=== PATIENT | female | born 1975 | race Caucasian/White ===

== ENCOUNTER 2020-11-02 16:36 | Emergency (ER) | payer MEDICARE, MEDICAID, SELFPAY ==
[2020-11-02 16:50] VITALS: BP 125/73; PULSE 70; RESP 20; TEMP 37; O2SAT 99
--- NOTE | 2020-11-02 17:08 | ED.FEMALEGU ---
HPI - Female Genitourinary General Chief complaint: Urogenital-Female Stated complaint: blood in urine w/back pain Time Seen by Provider: 11/02/20 16:38 Source: patient Mode of arrival: ambulatory Limitations: no limitations History of Present Illness HPI Narrative: 45-year-old female presents to urgent care with complaints of urinary urgency, frequency, hematuria and flank pains for the past 3 days. Patient denies fever, body aches, chills, vaginal discharge or concern for STDs. MD elicited complaint: dysuria, UTI and flank pain Pertinent past history: recurrent UTIs Onset (ago): day(s) (3) Vaginal bleeding: none Urinary symptoms: Frequency and Hematuria Relieving factors: none Patient : No Related Data Allergies Allergy/AdvReac Type Severity Reaction Status Date / Time Penicillins Allergy Dyspnea / Verified 11/02/20 17:18 SOB Review of Systems Constitutional: Constitutional: Denies chills and Denies fatigue Cardiovascular: Cardiovascular: Denies chest pain, Denies rapid heart rate and Denies radiating jaw, neck or arm pain Gastrointestinal: Gastrointestinal: Denies abdominal pain, Denies diarrhea, Denies nausea and Denies vomiting Genitourinary: Genitourinary: Reports hematuria, Reports nocturia, Reports dysuria, Reports flank pain and Denies urinary incontinence Integumentary/Breasts: Skin/Breast: Denies rash Neurologic: Denies vertigo, Denies dizziness and Denies syncope [facility] Social History Social History (Updated 11/02/20 @ 17:12 by Janel Rosales APRN) Smoking status: Current every day smoker Comments At time of signature, I agree with nursing past medical, surgical, social and family history. There is no relevant family history pertinent to the presenting complaint. Exam Const: General: healthy appearing and no acute distress Orientation/consciousness: patient oriented x3 Neck: Neck: normal visual inspection Resp: Effort & Inspection: normal respiratory effort and not tachypneic Auscultation: clear to auscultation bilaterally Cardio: Rate: regular rate, not bradycardic and not tachycardic Rhythm: regular rhythm GI: GI Palp: Yes Soft to palpation, No Tenderness to palpation present (GI) and No Rebound tenderness present Auscultation: normal bowel sounds : General: Yes bladder normal to palpation and Yes CVA tenderness bilateral Skin: General skin exam: normal color Rashes: no rashes Wounds: no wounds Neuro: General: patient oriented x3 and no meningeal signs Psych: Affect: normal affect Attitude: cooperative Thought content: Yes Normal thought content present Course Vital Signs Vital signs: Vital Signs Temperature 37.0 C 11/02/20 16:50 Pulse Rate 70 11/02/20 16:50 Respiratory Rate 20 11/02/20 16:50 Blood Pressure 125/73 11/02/20 16:50 Pulse Oximetry 99 11/02/20 16:50 Temperature 37.0 C 11/02/20 16:50 Pulse Rate 70 11/02/20 16:50 Respiratory Rate 20 11/02/20 16:50 Blood Pressure 125/73 11/02/20 16:50 Pulse Oximetry 99 11/02/20 16:50 MDM - Female Genitourinary MDM Narrative Medical decision making narrative: Patient agrees take Cipro as prescribed. Patient agrees to increase water intake. Patient agrees to monitor symptoms closely agrees to proceed to emergency room if symptoms worsen. SPoke with Renetta and RX was changed to Cipro 250mg BID X 7 days Differential Diagnosis Differential diagnosis: Likely bacterial vaginosis, cervicitis and vaginitis Lab Data Labs: Urine Glucose Negative Reference Range: Negative Urine Bilirubin Negative Reference Range: Negative Urine Ketone Negative Reference Range: Negative Urine Specific [place] 1.020 Reference Range:1.001-1.035
== END 2020-11-02 17:25 | disposition home or self-care (01) ==
PROVIDERS: Emergency Provider Nurse Practitioner Family
DX: N30.01 Acute cystitis with hematuria (principal); F17.200 Nicotine dependence, unspecified, uncomplicated; I25.10 Atherosclerotic heart disease of native coronary artery without angina pectoris; I25.2 Old myocardial infarction
CPT/HCPCS: 81003; 87077; 87086; 87186; 99213; G0463

== ENCOUNTER 2020-11-17 18:22 | Emergency (ER) | payer MEDICARE, MEDICAID, SELFPAY ==
[2020-11-17 18:29] VITALS: BP 124/71; PULSE 71; RESP 16; TEMP 36.9; O2SAT 99
[2020-11-17 18:36] VITALS: BP 124/71; PULSE 71; RESP 16; TEMP 36.9; O2SAT 99
--- NOTE | 2020-11-17 18:39 | ED.WOUNDLAC ---
HPI - Wound/Laceration General Chief Complaint: Extremity Injury, Lower Stated Complaint: lac on left leg/tetnus shot Time Seen by Provider: 11/17/20 18:39 Source: patient and RN notes reviewed History of Present Illness HPI narrative: Patient is a 45-year-old female who presents the urgent care with complaints of a nail laceration to the left upper thigh. Patient states that it happened approximately 30 minutes prior to arrival and bled a lot . Patient is on a blood thinner. Patient states that she needs up-to-date on her tetanus shot. No other acute complaints. No acute distress noted. Patient read a plan of care. Some parts of this dictation were generated by voice recognition software and may contain typographical and/or grammatical inaccuracies. Related Data Home Medications Medication Instructions Recorded Confirmed clopidogrel 75 mg PO DAILY 11/02/20 11/17/20 metoprolol succinate 25 mg PO DAILY 11/02/20 11/17/20 nitroglycerin See Rx Instructions .ROUTE .COMPLEX 11/02/20 11/17/20 Allergies Allergy/AdvReac Type Severity Reaction Status Date / Time Penicillins Allergy Dyspnea / Verified 11/17/20 18:35 SOB Review of Systems Review of Systems: CONSTITUTIONAL: Denies fever, chills, or sweats. EYES: Denies visual changes, redness, or discharge. ENT: Denies rhinorrhea, congestion, sore throat, or otalgia. CARDIOVASCULAR: Denies chest pain, palpitations, or edema. RESPIRATORY: Denies cough or dyspnea. GASTROINTESTINAL: Denies abdominal pain, nausea, vomiting, or diarrhea. GENITOURINARY: Denies dysuria or hematuria. SKIN: Reports of a nail laceration to the left thigh MUSCULOSKELETAL: Denies back pain, joint pain, or myalgia. NEUROLOGIC: Denies headache, numbness, or weakness. All other systems reviewed are negative, except as documented in HPI. PMFSH Social History Social History (Updated 11/02/20 @ 17:12 by Janel Rosales APRN) Smoking status: Current every day smoker Comments At the time of my signature, I reviewed and agree with the nursing past medical, surgical, social, and family history. There is no relevant family history pertinent to the patient complaint. Exam Narrative: GENERAL: This is a well-nourished, well-developed patient, in no apparent distress. HEAD: normocephalic, atraumatic. EYES: PERRL. Sclera clear/white. Vision is grossly intact. EARS: External ears normal NOSE: External nose normal with no obvious nasal discharge, nares without redness, no rhinorrhea. THROAT: Mucous membranes moist NECK: Neck supple CARDIOVASCULAR: Regular rate and rhythm without murmurs, gallops, or rubs. RESPIRATORY: Clear to auscultation. Breath sounds equal bilaterally. No wheezes, rales, or rhonchi. SKIN: 7 cm linear superficial laceration noted to the lateral left upper thigh with surrounding ecchymosis NEURO: awake, alert, and oriented to person, place and time. There were no obvious focal neurologic abnormalities. EXTREMITIES: No clubbing, cyanosis, or edema. Course Vital Signs Vital signs: Vital Signs Temperature 98.4 F 11/17/20 18:29 Pulse Rate 71 11/17/20 18:29 Respiratory Rate 16 11/17/20 18:29 Blood Pressure 124/71 11/17/20 18:29 Pulse Oximetry 99 11/17/20 18:29 Temperature 98.4 F 11/17/20 18:36 Pulse Rate 71 11/17/20 18:36 Respiratory Rate 16 11/17/20 18:36 Blood Pressure 124/71 11/17/20 18:36 Pulse Oximetry 99 11/17/20 18:36 Reviewed MDM - Wound/Laceration MDM Narrative Medical decision making narrative: Advised the patient to clean the wound with plain Dial soap and water. Use Neosporin and cover the wound if at risk of being soiled. Otherwise you may keep it open to air. Do not use peroxide, alcohol on the wound. Be aware of signs and symptoms of infection such as surrounding redness, swelling, severe tenderness and drainage from the wound. If such symptoms occur?follow-up with your PCP or in the emergency room if necessary. Typically these wou
[2020-11-17] MEDS: TETANUS,DIPHTHERIA,AC PERTUSSIS ADULT (0.5 ML) BOOSTRIX IM (18:54)
== END 2020-11-17 19:15 | disposition home or self-care (01) ==
PROVIDERS: Emergency Provider Nurse Practitioner Family
DX: S71.112A Laceration without foreign body, left thigh, initial encounter (principal); F17.200 Nicotine dependence, unspecified, uncomplicated; Z79.02 Long term (current) use of antithrombotics/antiplatelets; Z23 Encounter for immunization; W45.8XXA Other foreign body or object entering through skin, initial encounter
CPT/HCPCS: 90471; 90715; 99212; G0463

== ENCOUNTER 2023-11-10 13:02 | Emergency (ER) | payer MEDICARE, MEDICAID, SELFPAY ==
[2023-11-10 13:16] VITALS: BP 128/64; PULSE 76; RESP 18; TEMP 36.7; O2SAT 98
--- NOTE | 2023-11-10 13:36 | ED.GENADULT ---
HPI - General Adult General Chief complaint: Skin/Abscess/Foreign Body Stated complaint: Rash/Hands Time Seen by Provider: 11/10/23 13:36 Source: patient Mode of arrival: ambulatory Limitations: no limitations History of Present Illness HPI narrative: 48 y/o female presented for c/o intense itching to the tops of both hands. Onset 0200. Denies lip, tongue, or throat swelling, shortness of breath or wheezing. Says she changed detergent but same brand. Denies changes to soap, lotion, or any other exposures. No one else in the house or any contacts with similar symptoms. Related Data Home Medications Medication Instructions Recorded Confirmed clopidogrel 75 mg tablet 75 mg PO DAILY 11/02/20 11/17/20 metoprolol succinate 25 mg 25 mg PO DAILY 11/02/20 11/17/20 tablet,extended release 24 hr nitroglycerin 0.4 mg sublingual See Rx Instructions .Route .COMPLEX 11/02/20 11/17/20 tablet atorvastatin 40 mg tablet mg 11/10/23 diltiazem HCl 240 mg mg PO 11/10/23 capsule,extended release 24 hr isosorbide mononitrate 60 mg mg PO 11/10/23 tablet,extended release 24 hr pantoprazole 40 mg tablet,delayed mg PO 11/10/23 release ranolazine 500 mg tablet,extended mg PO 11/10/23 11/10/23 release,12 hr semaglutide 0.25 mg or 0.5 mg (2 mg subcut 11/10/23 mg/3 mL) subcutaneous pen injector (Ozempic) Allergies Allergy/AdvReac Type Severity Reaction Status Date / Time Penicillins Allergy Severe Dyspnea / Verified 11/10/23 13:26 SOB Sulfa (Sulfonamide Allergy Rash Verified 11/10/23 13:27 Antibiotics) Review of Systems Review of Systems: CONSTITUTIONAL: Denies body aches, fever, chills, or sweats. EYES: Denies visual changes, redness, or discharge. ENT: Denies rhinorrhea, congestion CARDIOVASCULAR: Denies chest pain, palpitations, or edema. RESPIRATORY: Denies cough or dyspnea. GASTROINTESTINAL: Denies abdominal pain, nausea, vomiting, or diarrhea. SKIN: Reports hand itching and rash MUSCULOSKELETAL: Denies back pain, joint pain, or myalgia. NEUROLOGIC: Denies headache, numbness, tingling, or weakness. PMFSH Past Medical History Medical History CAD (coronary artery disease) Diabetes Social History Social History Smoking status: Current every day smoker Comments At time of signature, I have reviewed and agree with nursing past medical, surgical, social and family history unless otherwise noted. Please see nursing chart for further information. There is no relevant family history pertinent to the presenting complaint Exam Narrative: GENERAL: Well-appearing EYES: conjunctivae clear, and EOMI. ENT: Mucous membranes moist. Oropharynx without edema, erythema or lesions. NECK: Supple. No lymphadenopathy CHEST: Clear to auscultation. HEART: Regular rate and rhythm. SKIN: Warm, dry. Bilateral dorsal hands with papular skin lesions c/w dyshidrotic eczema. No drainage,redness or fluctuance. No other rash noted. NEURO: Alert and oriented x3. Course Course Emergency Course: Patient is aware of diagnosis, understands and agrees to treatment plan. Anticipatory guidance given. Patient agrees to follow-up as directed and is aware of reasons to seek care at the emergency department. Portions of this record may have been created with voice recognition software Level of Care: Express Care Visit Vital Signs Vital signs: Vital Signs Temperature 98.1 F 11/10/23 13:16 Pulse Rate 76 11/10/23 13:16 Respiratory Rate 18 11/10/23 13:16 Blood Pressure 128/64 11/10/23 13:16 Pulse Oximetry 98 11/10/23 13:16 Oxygen Delivery Room Air 11/10/23 13:16 Temperature 98.1 F 11/10/23 13:16 Pulse Rate 76 11/10/23 13:16 Respiratory Rate 18 11/10/23 13:16 Blood Pressure 128/64 11/10/23 13:16 Pulse Oximetry 98 11/10/23 13:16 Oxygen Delivery Room A
== END 2023-11-10 13:48 | disposition home or self-care (01) ==
PROVIDERS: Emergency Provider Nurse Practitioner Family; PCP Internal Medicine
DX: L30.9 Dermatitis, unspecified (principal); I25.10 Atherosclerotic heart disease of native coronary artery without angina pectoris; E11.9 Type 2 diabetes mellitus without complications; F17.200 Nicotine dependence, unspecified, uncomplicated
CPT/HCPCS: 99213; G0463

== ENCOUNTER 2023-12-25 13:31 | Emergency (ER) | payer MEDICARE, MEDICAID, SELFPAY ==
[2023-12-25 13:44] VITALS: BP 127/75; PULSE 66; RESP 20; TEMP 36.7; O2SAT 100
--- NOTE | 2023-12-25 13:54 | ED.SKABFB ---
HPI - Skin/Abscess/Foreign Bdy General Chief complaint: Skin/Abscess/Foreign Body Stated complaint: rash Time Seen by Provider: 12/25/23 13:54 Source: patient, RN notes reviewed and old records reviewed Mode of arrival: ambulatory Limitations: no limitations History of Present Illness HPI narrative: 48-year-old female to Express Care with complaint of small, red, raised bumps to left upper arm, left lower leg for 3 days. Patient reports that she has been staying at a friend's house for 3 days and that she sleeps on her left side. Patient considering that she may be having an allergic reaction to the detergent that her friend is using. Patient denies itching, fever, pertinent medical history. Related Data Home Medications Medication Instructions Recorded Confirmed atorvastatin 40 mg tablet 40 mg PO DAILY 11/10/23 12/25/23 diltiazem HCl 240 mg 240 mg PO DAILY 11/10/23 12/25/23 capsule,extended release 24 hr pantoprazole 40 mg tablet,delayed 40 mg PO DAILY 11/10/23 12/25/23 release semaglutide 0.25 mg or 0.5 mg (2 0.25 mg subcut WEEKLY 11/10/23 12/25/23 mg/3 mL) subcutaneous pen injector (Ozempic) ranolazine 1,000 mg 1,000 mg PO BID 12/25/23 12/25/23 tablet,extended release,12 hr Allergies Allergy/AdvReac Type Severity Reaction Status Date / Time Penicillins Allergy Severe Dyspnea / Verified 12/25/23 14:05 SOB Sulfa (Sulfonamide Allergy Rash Verified 12/25/23 14:05 Antibiotics) Review of Systems Review of Systems: All systems reviewed & are unremarkable except as noted in HPI and below Constitutional: Constitutional: Reports no additional constitutional complaints Eyes: Eyes: Reports no additional eye complaints ENT: Reports system reviewed and no additional complaints, except as documented Cardiovascular: Cardiovascular: Reports no additional cardiovascular complaints, Denies chest pain and Denies dyspnea Respiratory: Respiratory: Reports no additional respiratory complaints, Denies cough and Denies dyspnea Musculoskeletal: Musculoskeletal: Reports no additional musculoskeletal complaints Integumentary/Breasts: Skin/Breast: Reports rash ( Left upper arm, left lower leg) Neurologic: Reports system reviewed and no additional complaints, except as documented Psychiatric: Psychiatric: Reports no additional psychiatric complaints PMFSH Past Medical History Medical History CAD (coronary artery disease) Diabetes Social History Social History Smoking status: Current every day smoker Comments At the time of my signature, I reviewed and agree with the nursing past medical, surgical, social, and family history. There is no relevant family history pertinent to the patient complaint. Exam Const: General: cooperative, healthy appearing, comfortable, no acute distress, alert and well nourished Nutritional Appearance: well nourished Orientation/consciousness: patient oriented x3 Limitations: no limitations HENMT: Head: normal to inspection Ears: external ears normal Face/Nose/Sinus: Normal external nose present, Normal nares present, normal facial exam, No erythema and No edema Face and sinus: normal facial exam, no erythema and no edema Mouth: Yes Normal oral and palatal mucosa present Eyes: General: appearance normal, both eyes and all related structures Neck: Neck: normal visual inspection, full ROM and no meningeal signs Chest: Chest palpation & inspection: normal inspection of the chest Resp: Effort & Inspection: normal respiratory effort and able to speak in complete sentences Cardio: Jugular venous distension: no JVD Rate: regular rate Back/Spine/Pelvis: Cervical Spine: cervical ROM normal Skin: General skin exam: normal color, turgor normal and rashes Other: red, erythematous, raised rash to left upper lateral arm, left lower lateral leg
== END 2023-12-25 14:20 | disposition home or self-care (01) ==
PROVIDERS: Emergency Provider Nurse Practitioner Family; PCP Internal Medicine
DX: L25.9 Unspecified contact dermatitis, unspecified cause (principal); I25.10 Atherosclerotic heart disease of native coronary artery without angina pectoris; E11.9 Type 2 diabetes mellitus without complications; F17.200 Nicotine dependence, unspecified, uncomplicated
CPT/HCPCS: 99213; G0463